=== PATIENT | male | born 1970 ===

== ENCOUNTER 2018-04-01 13:34 | Emergency (ER) | payer OTHER, MEDICAID ==
[2018-04-01 14:09] VITALS: BMI 25.7
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
[2018-04-01] MEDS: Sodium Chloride 0.9% 1,000 ML IV ONE (16:30)
[2018-04-01] MEDS ORDERED: Sodium Chloride 0.9% 1,000 ML ONE (16:33)
[2018-04-01 16:52] LABS: BASO # 0.1 K/uL (0.0-0.2); BASO % 0.7 % (0.0-2.0); EOS % 0.1 % (0.0-4.0); HEMOGLOBIN 14.4 g/dL (12.0-18.0); LYMPH # 2.4 K/uL (1.0-4.3); LYMPH % 31.3 % (20.0-40.0); MEAN CELL VOLUME 95.1 fL (80.0-94.0); MEAN CORPUSCULAR HEMOGLOBIN 33.2 pg (27.0-31.0); MEAN CORPUSCULAR HGB CONC 34.9 g/dL (33.0-37.0); MEAN PLATELET VOLUME 6.2 fL (7.2-11.7); MONO # 0.6 K/uL (0.0-0.8); MONO % 7.2 % (0.0-10.0); NEUT # 4.8 K/uL (1.8-7.0); NEUT % 60.7 % (50.0-75.0); RBC 4.35 Mil/uL (4.40-5.90); RED CELL DISTRIBUTION WIDTH 13.2 % (11.5-14.5); WHITE BLOOD COUNT 7.8 K/uL (4.8-10.8)
[2018-04-01] MEDS ORDERED: Iohexol 300 100 ML IJ ONE (16:56)
[2018-04-01 17:06] LABS: ALB/GLOB RATIO 1.4 (1.0-2.1); ALBUMIN 4.8 g/dL (3.5-5.0); ALT/SGPT 30 U/L (21-72); AST/SGOT 30 U/L (17-59); BLOOD UREA NITROGEN 17 mg/dL (9-20); CALCIUM 9.3 mg/dl (8.6-10.4); GFR NON-AFRICAN AMERICAN > 60
[2018-04-01 17:35] LABS: BARBITURATES, UR NEGATIVE (NEGATIVE); BENZODIAZEPINES, UR NEGATIVE (NEGATIVE); OPIATES, UR NEGATIVE (NEGATIVE); PHENCYCLIDINE, UR NEGATIVE (NEGATIVE)
[2018-04-01 18:12] VITALS: RESP 22
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
[2018-04-01 19:06] VITALS: BP 143/98; PULSE 112; TEMP 98
[2018-04-01 21:49] VITALS: O2SAT 98
--- NOTE | 2018-04-04 09:33 | CARD ---
APPROVED REPORT Date of service: 04/01/2018 EKG Measurement Heart [id number] <Conclusion> Sinus tachycardia with fusion complexes Cannot rule out Inferior infarct, age undetermined Abnormal ECG
== END 2018-04-01 19:11 | disposition home or self-care (01) ==
LOC: C.ER 13:34
DX: S23.3XXA Sprain of ligaments of thoracic spine, initial encounter (principal); V89.2XXA Person injured in unspecified motor-vehicle accident, traffic, initial encounter; M54.6 Pain in thoracic spine
CPT/HCPCS: 71046; 71275; 74175; 80053; 82948; 84443; 85025; 93005; 96361; 96374; 99285; G0480; J2270; J7030; Q9967